=== PATIENT | male | born 1955 | race Caucasian/White ===

== ENCOUNTER 2022-05-03 19:21 | Emergency (ER) | payer MEDICARE, SELFPAY ==
--- NOTE | ~2022-05-03 | CT_ITS ---
EXAMINATION: CT brain wo con, CT facial & cervical spine wo DATE: 05/03/2022 20:33 INDICATION: Fall with head injury TECHNIQUE: 1. Computed tomography (CT) of the head was performed without intravenous contrast. Sagittal and anita nal reconstructions were performed. The mA was adjusted according to patient size. Iterative reconstr uction technique was employed. The dose-length product was 605.33 mGy-cm. 2. CT of the maxillofacial bones and cervical spine was performed without intravenous contrast. Sagit steve and coronal reconstructions were performed. Automated exposure control and iterative reconstructi on technique were employed. The dose length product was 379.55 mGy-cm. COMPARISON: head CT dated FINDINGS: Head and maxillofacial bones: No calvarial fracture. No acute intracranial hemorrhage, acute infarction or abnormal extra axial flu id collection. There is mild scattered white matter hypoattenuation consistent with chronic small ves alva ischemic disease. Symmetric prominence of the sulci consistent with mild age-appropriate diffuse cerebral volume loss. Ventricles are normal and symmetric. No mass/mass effect. Chronic bilateral nasal bone fractures with no interval change in the mild displacement of the still ununited left nasal bone fragments. Acute minimally displaced segmental fracture of the left zygomati c arch . There is a second sagittally oriented fracture plane beginning anteriorly at the inferior or bital rim and extending posteriorly along the lateral margin of the inferior orbital wall/superior wa ll of the left maxillary sinus and the superolateral aspect of the lateral wall of the left maxillary sinus. The fracture along the inferior orbital wall remains lateral to the infraorbital canal with n o evident herniation of the inferior rectus muscle. Bilateral orbits are otherwise normal. No other a cute maxillofacial fractures identified. Unchanged mild leftward deviation of the anterior nasal sept um. Bilateral temporomandibular joints are normal alignment. Chronic left otomastoiditis effusion inc reased since the prior study. Cervical spine: 1-2 mm anterolisthesis C4 on C5 and similar degree of posterolisthesis of C3 on C4. Vertebral body he ights are normal. No fracture. Mild disc height loss at C2-C3, C7-T1 and T1-T2. Moderate to severe di sc height loss at C4-C5 through C6-C7 with severe bilateral uncovertebral osteoarthritis and posterio r endplate osteophytes, the latter resulting in mild central canal stenosis at each level. There is s evere bilateral facet osteoarthritis at C3-C4. Otherwise mild to moderate cervical facet osteoarthrit is. Together with the uncovertebral osteoarthritis is results in moderate neural foraminal stenosis o n the left at C4-C5 through C6-C7 with mild neural foraminal stenosis at many of the remaining bilate ral cervical neural foramina. Cervical soft tissues are unremarkable. Minimal biapical pleural-parenc hymal scarring. IMPRESSION: 1. No acute intracranial process. 2. Acute left-sided maxillofacial tripod fracture, minimally displaced at the left zygomatic arch and nondisplaced at the inferior wall of the left orbit and superolateral almanzar of the left maxillary si nus. 3. Moderate to severe cervical spondylosis with no acute osseous abnormality. 4. Chronic left otomastoiditis effusion which has increased in size. 5. 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 Reviewed, dictated and finalized at location A. R BREAD IMPRESSION: 1. No acute intracranial process. 2. Acute left-sided maxillofacial tripod fracture, minimally displaced at the l eft zygomatic arch and nondisplaced at the inferior wall of the left orbit and superolateral almanzar of the left maxillary sinus. 3. Moderate to se
[2022-05-03 19:22] VITALS: BP 129/70; PULSE 63; RESP 16; TEMP 36.5; O2SAT 99
--- NOTE | 2022-05-03 19:57 | ED.FALL ---
HPI - Fall General Chief Complaint: Fall Stated Complaint: glf left face swelling Time Seen by Provider: 05/03/22 19:25 Source: patient and family Mode of arrival: EMS Limitations: no limitations History of Present Illness HPI Narrative: Patient is a 66 y/o male who presents to the ED via EMS with with report of a fall with head injury. Per family member via phone, she witnessed the patient fall tonight. Patient was out in the garage smoking a cigarette when he tripped and fell walking up the stairs to walk back inside. She states he reached out to try to catch himself, but was not able to. He hit his back against the car ramirez and then fell to the ground, hitting his head. Family number states patient lost consciousness for approximately 1.5 minutes. She was able to sternal rub him awake. EMS was then called. Patient does admit to drinking today. He states he has had several vodka drinks, which is normal for him. He is a daily drinker. He complains of pain to his neck from the c-collar, but otherwise denies any pain. Denies chest pain, difficulty breathing, vision changes, nausea, vomiting, dizziness, lightheadedness. Denied prodromal sx's. He does remember going outside to smoke a cigarette and waking up on the ground. Patient sustained a small laceration to his L temporal region. He is not on any blood thinners. Related Data Home Medications Medication Instructions Recorded Confirmed aspirin 81 mg tablet,delayed 81 mg PO DAILY 09/25/21 09/25/21 release (Adult Aspirin Regimen) Allergies Allergy/AdvReac Type Severity Reaction Status Date / Time No Known Allergies Allergy Verified 05/03/22 19:25 Review of Systems Review of Systems: CONSTITUTIONAL: Denies fever, chills, or sweats. EYES: Denies visual changes. CARDIOVASCULAR: Denies chest pain. RESPIRATORY: Denies dyspnea. GASTROINTESTINAL: Denies abdominal pain, nausea, vomiting, or diarrhea. SKIN: Reports laceration to L temporal region. MUSCULOSKELETAL: Reports neck pain. NEUROLOGIC: Reports head injury, LOC. Denies dizziness, lightheadedness, headache, numbness, or weakness. All systems reviewed & are unremarkable except as noted in HPI and below PMFSH Past Medical History Medical History HTN (hypertension) Surgical History Surgical History History of arthroscopy of left knee Family History Family History (Updated 09/25/21 @ 13:30 by Soha Sykes MA) Sibling Heart disease Mother Hypertension Social History Social History (Updated 05/03/22 @ 20:40 by Nel Marvin PA-C) Smoking status: Former smoker Second hand tobacco smoke exposure: No Alcohol intake: current Alcohol use details: daily vodka drinker Substance use: never Substance use type: does not use Gender identity (if verbalized by the patient): Male Sexual Orientation (if Verbalized by the Patient): Straight or Heterosexual Spiritual care concerns: No Agree to blood products: Yes Exam Narrative: GENERAL: Well appearing, well-nourished, non-toxic, in no acute distress. HEAD: Normocephalic. Approx 2cm laceration to L temporal region with surrounding skin abrasions. EYES: PERRL/EOMI, conjunctivae clear bilaterally. No nystagmus. No raccoon eyes. NOSE: Normal, no drainage. EARS:TMS clear, with good light reflex. No erythema or bulging. No hemotympanum or miranda sign. THROAT: Pharynx clear, no exudate. MMs moist. NECK: Supple. No adenopathy, no masses. C-collar in place. No significant midline spinal tenderness palpated. RESPIRATORY: Airway patent, respirations nonlabored. Clear to auscultation bilaterally, no rales, rhonchi, wheezing. CARDIOVASCULAR: Regular rate and rhythm without murmurs, rubs, or gallops. Peripheral pulses 2+ and equal bilaterally. ABDOMINAL: Soft, nontender, nondistended, no hepatosplenomegaly. Normoactive BS. M
--- NOTE | 2022-05-03 20:08 | ECG_ITS ---
Measurements Intervals [place] Rate: 54 P: 52 PA: 176 QRS: -72 QRSD: 126 T: 28 QT: 467 QTc: 443 Interpretive Statements SINUS BRADYCARDIA LEFT ANTERIOR FASCICULAR BLOCK [QRS AXIS <= -45, QR IN I, RS IN II] NONSPECIFIC T-WAVE CHANGES NO PREVIOUS ECG AVAILABLE FOR COMPARISON Electronically Signed On 05-03-2022 21:20:29 FOOD SERVICE by Lucy Condon M.D.
[2022-05-03 20:23] LABS: Basophils Absolute Auto 0.1 K/mm3 (0.0-0.1); Basophils Percent Auto 0.6 % (0.2-1.2); Eosinophils Absolute Auto 0.1 K/mm3 (0-0.3); Hemoglobin 14.1 g/dL (14.0-18.0); Immature Granulocyte Absolute 0.08 K/mm3 (0.00-0.031); Immature Granulocyte Percent A 0.9 % (0-0.5); Lymphocytes Absolute Auto 1.76 K/mm3 (0.9-3.2); Lymphocytes Percent Auto 18.9 % (18.3-44.2); Mean Corpuscular HGB Conc 33.6 g/dl (32-36); Mean Corpuscular Hemoglobin 34.2 pg (26-34); Mean Corpuscular Volume 101.9 fl (80-100); Mean Platelet Volume 10.2 fl (7.4-10.4); Monocytes Percent Auto 10.6 % (2.6-8.5); Neutrophils Absolute Auto 6.3 K/mm3 (1.3-6.7); Platelet Count Result 225 k/mm3 (150-375); Red Blood Count 4.12 M/mm3 (4.6-6.20); Red Cell Distribution Width 12.8 % (11.5-14.5); White Blood Count 9.3 K/mm3 (4.5-10.0)
[2022-05-03 20:39] LABS: Ethanol 183 mg/dL (<10)
[2022-05-03 20:40] LABS: Alanine Aminotransferase 51 U/L (6-50); Alkaline Phosphatase 62 U/L (38-126); Anion Gap 5 mmol/L (8-16); Aspartate Amino Transferase 65 U/L (17-59); Bilirubin,Total 0.4 mg/dL (0.2-1.3); Blood Urea Nitrogen 15 mg/dL (9-20); Carbon Dioxide 29 mmol/L (22-30); Chloride 100 mmol/L (98-107); Estimated CRCL calculation 64 ml/min; Estimated Glomerular Filt Rate > 60; Glucose 94 mg/dL (65-110); Potassium 3.5 mmol/L (3.4-5.0); Sodium 134 mmol/L (137-145)
[2022-05-03 20:50] LABS: Troponin I < 0.012 ng/mL (0.000-0.034)
[2022-05-03] MEDS: LIDOCAINE HCL 1% PF INJ 5 ML VIAL 30 ML INFILTRATE (22:43)
[2022-05-03 22:50] VITALS: BP 114/57; PULSE 59
[2022-05-03 22:51] VITALS: BP 120/63; PULSE 60
[2022-05-03 22:52] VITALS: BP 113/78; PULSE 84
== END 2022-05-03 23:27 | disposition home or self-care (01) ==
PROVIDERS: Emergency Provider Physician Assistant; PCP Family Medicine Adolescent Medicine
DX: S06.9X1A Unspecified intracranial injury with loss of consciousness of 30 minutes or less, initial encounter (principal); S02.40FA Zygomatic fracture, left side, initial encounter for closed fracture; S02.32XA Fracture of orbital floor, left side, initial encounter for closed fracture; S02.40DA Maxillary fracture, left side, initial encounter for closed fracture; S01.81XA Laceration without foreign body of other part of head, initial encounter; I10 Essential (primary) hypertension; F17.210 Nicotine dependence, cigarettes, uncomplicated; R00.1 Bradycardia, unspecified; I44.4 Left anterior fascicular block; M47.812 Spondylosis without myelopathy or radiculopathy, cervical region; W10.9XXA Fall (on) (from) unspecified stairs and steps, initial encounter
CPT/HCPCS: 12011; 36415; 70450; 70486; 72125; 80053; 80307; 84484; 85025; 93005; 99284

== ENCOUNTER → 2024-09-08 15:17 | Outpatient (CLI) | payer MEDICARE, SELFPAY ==
--- NOTE | ~2024-09-08 | XR_ITS ---
XR elbow RT 2V Ordering provider: Mary Shipman APRN History: . fall one week ago with decrease elbow mobility . Comparison: None. FINDINGS: BONES: Supracondylar fracture is noted. No significant displacement seen in the bony fragments. JOINT SPACES: Normal. SOFT TISSUES: Soft tissue swelling is seen anteriorly and posteriorly around the fracture area. No de finite joint effusion. IMPRESSION: Supracondylar humeral fracture. Reviewed, dictated and finalized at location A.
--- NOTE | ~2024-09-08 | XR_ITS ---
XR forearm RT 2V Ordering provider: Mary Shipman APRN History: . fall one week ago with ulnar pain and swelling . Comparison: September 08, 2024 FINDINGS: BONES: Supracondylar fracture is seen in the humerus. JOINT SPACES: Normal. SOFT TISSUES: Normal. IMPRESSION: Supracondylar humeral fracture. Reviewed, dictated and finalized at location A.
== END ==
LOC: EXPCRAD 15:22
PROVIDERS: PCP Nurse Practitioner Family; Visit Provider Nurse Practitioner Family
DX: S42.411S Displaced simple supracondylar fracture without intercondylar fracture of right humerus, sequela (principal); X58.XXXA Exposure to other specified factors, initial encounter
CPT/HCPCS: 73070; 73090